=== PATIENT | male | born 1955 | race Caucasian/White ===

== ENCOUNTER → 2018-04-03 | Outpatient (CLI) | payer BC ==
[~2018-04-03] VITALS: Ht 175.3 cm; Wt 80.3 kg
[~2018-04-03] MED LIST: LEXAPRO20 MG PO; PREVACID 15MG15 M1 PO
[2018-04-03 12:01] VITALS: BP 160/87; PULSE 82
[2018-04-03 13:15] VITALS: BP 168/93; PULSE 77
== END ==
LOC: COL.RAD 11:24
DX: M51.27 Other intervertebral disc displacement, lumbosacral region (principal)
CPT/HCPCS: J3301

== ENCOUNTER → 2019-06-23 | Outpatient (CLI) | payer BC | LOC: COL.RAD 06-04 09:00 | DX: Z82.49 Family history of ischemic heart disease and other diseases of the circulatory system (principal) ==

== ENCOUNTER → 2020-07-08 | Outpatient (CLI) | payer BC | LOC: COL.PUL 07:49 | DX: R06.02 Shortness of breath (principal) ==

== ENCOUNTER 2022-08-30 13:26 | Day surgery (SDC) | payer MEDICARE ==
[~2022-08-30] VITALS: Ht 175.3 cm; Wt 84.2 kg
[2022-08-30] MEDS ORDERED: PROTONIX 40MG T40 MG PO (14:21)
[2022-08-30] MEDS ORDERED: NORVASC 10MG10 MG PO (14:30)
[2022-08-30 14:48] VITALS: BP 162/92; PULSE 91; TEMP 97.7
[2022-08-30 15:10] VITALS: BP 117/79; PULSE 88; TEMP 97.6
[2022-08-30 15:25] VITALS: BP 132/81; PULSE 84
--- NOTE | 2022-08-30 16:23 | NUR ---
1510: PATIENT TO BAY 4 PER CART FROM ENDOSCOPY SUITE. REPORT RECEIVED. PATIENT ALERT AND ORIENTED. VS OBTAINED. REQUESTING A MUFFIN AND WATER AT THIS TIME. CALL LIGHT IN REACH AT BEDSIDE. 1525: PATIENT TOLERATING MUFFIN AND WATER. VS STABLE. PATIENT REMAINS ALERT AND ORIENTED. AT BEDISDE. CALL LIGHT IN REACH. 1530: DISCHARGE EDUCATION COMPLETED. PATIENT STATED UNDERSTANDING OF INSTRUCITONS. DISCHARGE PAPERWORK GIVEN TO PATIENT. IV DC'D AT THIS TIME. PATIENT DENIES NEEDING ASSISTANCE WITH GETTING DRESSED. 1600: DR. LIND IN TO VISIT WITH PATIENT AT THIS TIME. 1610: PATIENT OFF UNIT PER WHEEL CHAIR. PATIENT DISCHARGED TO HOME WITH PER PERSONAL VEHICLE.
== END 2022-08-30 16:10 | disposition home or self-care (01) ==
LOC: SDCO 13:26
DX: K22.2 Esophageal obstruction (principal); K21.00 Gastro-esophageal reflux disease with esophagitis, without bleeding; K44.9 Diaphragmatic hernia without obstruction or gangrene; Z79.899 Other long term (current) drug therapy
CPT/HCPCS: C1726; J2704; J7120